=== PATIENT | male | born 1980 | race Caucasian/White ===

== ENCOUNTER 2020-08-23 11:36 | Emergency (ER) | payer BC, SELFPAY ==
--- OUTSIDE RECORDS SUMMARY | 2020-08-23 11:39 | XMS REPORT | Continuity of Care Document ---
:1980 Author Organization [facility] t Address [address] [place] [address] Care Team Providers Name Role Phone Pcp MD Primary Care Physician Unavailable [facility] Attending Clinician Unavailable [facility] Admitting Clinician Unavailable Problems Condition Condition Condition Status Onset Resolution Last Treating Co mments Source Name Details Category Date Date Treatment Clinician Date Pulmonary Pulmonary Disease Active [facility] 00 [place] Depression Depression Disease Active [facility] Allergies, Adverse Reactions, Alerts This patient has no known allergies or adverse reactions. Social History Social Habit Start Date Stop Date Quantity Comments Source Sex Assigned At [facility] Tobacco use and 2018-02-11 2018-02-11 Never used [facility] - exposure 00:00:00 00:00:00 [facility] Alcohol intake 2018-02-11 2018-02-[address] [facility] es - 00:00:00 00:00:00 non-drinker of [facility] nter alcohol (finding) Smoking Status Start Date Stop Date Source Never smoker [facility] Medications This patient has no known medications. Procedures This patient has no known procedures. Plan of Care Planned Activity Planned Date Details Comments Source Future Scheduled 2020-02-[address] [facility] - Test 00:00:00 (#1) [code = [facility] INFLUENZA VACCINE (#1)] Future Scheduled 2015 Lipid panel [facility] Test [facility]:00 (procedure) [code = [facility] [id number]] Results Test Description Test Time Test Comments Results Result Comments Source FACTOR 5 LEIDEN PCR (THROMBOTIC RISK) 2018-02-21 10:48:00 Test Item Value Reference Range Interpretation Comme nts FACTOR V LEIDEN (NEIDAAKER) (test code = Negative for the R506Q (Fa ctor V Leiden) 718) mutation [id number] (BEAKER) (test Pearl Newton MD (electro demetrius code = 2599) signature) This test is a genotyping assay which evaluates the DNA sequence corresponding to Codon 506 of the Factor V Gene. A region of the Factor V Gene is amplified by polymerase chain reaction followed by fluorescent monitoring of a specific pair of hybridized probes. Since genetic variation and other factors can affect the accuracy of direct mutation testing, these results should be interpreted in light ofclinical and familial data.This test was developed and its performance characteristics determined bythe [facility] Pathology Department, Section of Molecular Pathology. It has not been cleared or approved by the U.S. Food and Drug Administration (FDA), since FDA approval is not requ ired for clinical use of the test. Validation was done as required by the Clinical Laboratory Improvement Amendments of 1988.RAD, CHEST, 1 VIEW, NON DEPT 2018-02-13 10:22:00Reason for exam:->cough, sobShould this be performed at the bedside?->YesFINAL REPORT Portable chest. CLINICAL HISTORY: cough, sob. COMPARISON STUDY: None. FINDINGS: The cardiac silhouette is unremarkable. The pulmonary parenchyma demonstrates a 1.1 cm nodule in the right midlung field. Atelectatic changes are seen in the lung bases. No pleural effusi on is noted Degenerative changes are noted. IMPRESSION: 1.1 cm nodule in the right midlung. The patient recently had a CT scan at [facility]. Correlation with the study is recommended. Signed: Jt Hernandez MDReport Verified Date/Time: 02/13/2018 10:22:47 Reading Location: [facility] C013X [facility] Reading Room -[id number] 07:00:00 Test Item Value Reference Range Interpretation Comments D-DIMER QUANTITATIVE (NEIDAAKER) 0.36 MG/L FEU <0.50 (test code = 671) Intended Use: The D-Dimer Assay can be used to aid in the diagnosis of Deep Vein Thrombosis (DVT) and Pulmonary Embolism Disease (PED).In patients with low pre- test probability, various studies concerning STA Liatest D-dimer test have reported that with a cutoff value of 0.50 MG/L FEU, the Negative Predictive Value (NPV) regarding the exclusion of thrombosis is within 95-100% range. [id number] 06:59:00 Test Item Value Reference Range Interpretation Comments PROTIME (BEAKER) (test code = 13.1 seconds 11.7-14.7 759) INR (BEAKER) (test code = 370) 1.0 <=5.9 PARTIAL THROMBOPLASTIN TIME 87.9 seconds 22.5-36.0 H (BEAKER) (test code = 760) RECOMMENDED COUMADIN/WARFARIN INR THERAPY RANGESSTANDARD DOSE: 2.0 - 3.0 Includes: PROPHYLAXIS forvenous thrombosis, systemic embolization; TREATMENT for venous thrombosis and/or pulmonary embolus.HIGH RISK: Target INR is 2.5-3.5 for patients with mechanical heart valves.[id number] 06:59:00 Test Item Value Reference Range Interpretation Comments PARTIAL THROMBOPLASTIN TIME 87.9 seconds 22.5-36.0 H (BEAKER) (test code = 760) [id number] 06:58:00 Test Item Value Reference Range Interpretation Comments MAGNESIUM (BEAKER) 2.2 mg/dL 1.6-2.6 Specimen slightly (test code = 627) hemolyzed BASIC METABOLIC [id number] 06:58:00 Test Item Value Reference Range Interpretation Comments SODIUM (BEAKER) 138 meq/L 136-145 (test code = 381) POTASSIUM (BEAKER) 3.8 meq/L 3.5-5.1 Specimen slightly (test code = 379) hemolyzed CHLORIDE (BEAKER) 104 meq/L 98-107 (test code = 382) CO2 (BEAKER) (test 26 meq/L 22-29 code = 355) BLOOD UREA NITROGEN 16 mg/dL 7-21 (BEAKER) (test code = 354) CREATININE (BEAKER) 1.01 mg/dL 0.57-1.25 Specimen slightly (test code = 358) hemolyzed GLUCOSE RANDOM 88 mg/dL 70-105 (BEAKER) (test code = 652) CALCIUM (BEAKER) 9.4 mg/dL 8.4-10.2 (test code = 697) EGFR (BEAKER) (test 83 mL/min/1.73 ESTIMA ARNOL GFR IS code = 1092) sq m NOT ACCURATE CREATININE CLEARANCE IN PREDICTING GLOMERULAR FILTRATION RATE . ESTIMATED GFR I S NOT APPLICABLE FOR DIALYSIS PATIEN TS. [id number] 00:49:00 Test Item Value Reference Range Interpretation Comments PARTIAL THROMBOPLASTIN TIME 93.0 seconds 22.5-36.0 H (BEAKER) (test code = 760) [id number] 17:42:00 Test Item Value Reference Range Interpretation Comments PARTIAL THROMBOPLASTIN TIME 51.2 seconds 22.5-36.0 H (BEAKER) (test code = 760) OCCULT BLOOD, [id number] 17:41:00 Test Item Value Reference Range Interpretation Comments FECAL OCCULT BLOOD (BEAKER) (test Negative Negative code = 618) [id number] 10:24:00 Test Item Value Reference Range Interpretation Comments PARTIAL THROMBOPLASTIN TIME 54.7 seconds 22.5-36.0 H (BEAKER) (test code = 760) [id number] 07:58:00 Test Item Value Reference Range Interpretation Comments PROTIME (BEAKER) (test code = 14.5 seconds 11.7-14.7 759) INR (BEAKER) (test code = 370) 1.1 <=5.9 PARTIAL THROMBOPLASTIN TIME 121.8 seconds 22.5-36.0 H (BEAKER) (test code = 760) RECOMMENDED COUMADIN/WARFARIN INR THERAPY RANGESSTANDARD DOSE: 2.0 - 3.0 Includes: PROPHYLAXIS forvenous thrombosis, systemic embolization; TREATMENT for venous thrombosis and/or pulmonary embolus.HIGH RISK: Target INR is 2.5-3.5 for patients with mechanical heart valves.[id number] 07:48:00 Test Item Value Reference Range Interpretation Comments MAGNESIUM (BEAKER) (test code = 2.1 mg/dL 1.6-2.6 627) BASIC METABOLIC [id number] 07:48:00 Test Item Value Reference Range Interpretation Comments SODIUM (BEAKER) 142 meq/L 136-145 (test code = 381) POTASSIUM (BEAKER) 4.2 meq/L 3.5-5.1 (test code = 379) CHLORIDE (BEAKER) 107 meq/L 98-107 (test code = 382) CO2 (BEAKER) (test 27 meq/L 22-29 code = 355) BLOOD UREA NITROGEN 20 mg/dL 7-21 (BEAKER) (test code = 354) CREATININE (BEAKER) 1.08 mg/dL 0.57-1.25 (test code = 358) GLUCOSE RANDOM 90 mg/dL 70-105 (BEAKER) (test code = 652) CALCIUM (BEAKER) 9.5 mg/dL 8.4-10.2 (test code = 697) EGFR (BEAKER) (test 77 mL/min/1.73 ESTIMA ARNOL GFR IS code = 1092) sq m NOT ACCURATE CREATININE CLEARANCE IN PREDICTING GLOMERULAR FILTRATION RATE . ESTIMATED GFR I S NOT APPLICABLE FOR DIALYSIS PATIEN TS. CBC W/PLT COUNT & AUTO [id number] 07:35:00 Test Item Value Reference Range Interpretation Comments WHITE BLOOD CELL COUNT (BEAKER) 7.0 K/ L 3.5-10.5 (test code = 775) RED BLOOD CELL COUNT (BEAKER) 5.08 M/ L 4.63-6.08 (test code = 761) HEMOGLOBIN (BEAKER) (test code = 14.8 GM/DL 13.7-17.5 410) HEMATOCRIT (BEAKER) (test code = 44.8 % 40.1-51.0 411) MEAN CORPUSCULAR VOLUME (BEAKER) 88.2 fL 79.0-92.2 (test code = 753) MEAN CORPUSCULAR HEMOGLOBIN 29.1 pg 25.7-32.2 (BEAKER) (test code = 751) MEAN CORPUSCULAR HEMOGLOBIN CONC 33.0 GM/DL 32.3-36.5 (BEAKER) (test code = 752) RED CELL DISTRIBUTION WIDTH 12.1 % 11.6-14.4 (BEAKER) (test code = 412) PLATELET COUNT (BEAKER) (test 226 K/CU MM 150-450 code = 756) MEAN PLATELET VOLUME (BEAKER) 10.1 fL 9.4-12.4 (test code = 754) NUCLEATED RED BLOOD CELLS 0 /100 WBC 0-0 (BEAKER) (test code = 413) NEUTROPHILS RELATIVE PERCENT 44 % (BEAKER) (test code = 429) LYMPHOCYTES RELATIVE PERCENT 45 % (BEAKER) (test code = 430) MONOCYTES RELATIVE PERCENT 8 % (BEAKER) (test code = 431) EOSINOPHILS RELATIVE PERCENT 2 % (BEAKER) (test code = 432) BASOPHILS RELATIVE PERCENT 1 % (BEAKER) (test code = 437) NEUTROPHILS ABSOLUTE COUNT 3.05 K/ L 1.78-5.38 (BEAKER) (test code = 670) LYMPHOCYTES ABSOLUTE COUNT 3.11 K/ L 1.32-3.57 (BEAKER) (test code = 414) MONOCYTES ABSOLUTE COUNT (BEAKER) 0.58 K/ L 0.30-0.82 (test code = 415) EOSINOPHILS ABSOLUTE COUNT 0.14 K/ L 0.04-0.54 (BEAKER) (test code = 416) BASOPHILS ABSOLUTE COUNT (BEAKER) 0.04 K/ L 0.01-0.08 (test code = 417) IMMATURE GRANULOCYTES-RELATIVE 0 % 0-1 PERCENT (BEAKER) (test code = 2801) [id number] 19:33:00 Test Item Value Reference Range Interpretation Comments PARTIAL THROMBOPLASTIN TIME 41.6 seconds 22.5-36.0 H (BEAKER) (test code = 760) Prior to initiating heparinTROPONIN [id number] 19:14:00 Test Item Value Reference Range Interpretation Comments TROPONIN I (BEAKER) (test code = 397) < ng/mL 0.00-0.03 Troponin I (TnI) levels must be interpreted in the context of the presenting symptoms and the clinical findings. Elevated TnI levels indicate myocardial damage, but are not specific for ischemic heart disease. Elevated TnI levels are seen in patients with other cardiac conditions (including myocarditis and congestive heart failure), and slight TnI elevations occur in patients with other conditions, including sepsis, renal failure, acidosis, acute neurological disease, and persistent tachyarrhythmia.B-TYPE NATRIURETIC FACTOR (BNP) 2018-02-11 17:19:00 Test Item Value Reference Range Interpretation Comments B-TYPE NATRIURETIC PEPTIDE (BEAKER) 30 pg/mL 0-100 (test code = 700) TROPONIN [id number] 17:18:00 Test Item Value Reference Range Interpretation Comments TROPONIN I (BEAKER) (test code = 397) < ng/mL 0.00-0.03 Troponin I (TnI) levels must be interpreted in the context of the presenting symptoms and the clinical findings. Elevated TnI levels indicate myocardial damage, but are not specific for ischemic heart disease. Elevated TnI levels are seen in patients with other cardiac conditions (including myocarditis and congestive heart failure), and slight TnI elevations occur in patients with other conditions, including sepsis, renal failure, acidosis, acute neurological disease, and persistent tachyarrhythmia.
--- NOTE | 2020-08-23 13:26 | RAD REPORT ---
EXAM DESCRIPTION: Vivienne Single View08/23/2020 1:12 pm CLINICAL HISTORY: Chest pain COMPARISON: 2014 FINDINGS: Calcified granuloma right. The lungs appear clear of acute infiltrate. The heart is normal size IMPRESSION: No acute abnormalities displayed
[2020-08-23] MEDS ORDERED: NA CHLORIDE 0.9% 1,000 ML ONE (13:45)
[2020-08-23] MEDS ORDERED: KETOROLAC 30 MG/ML INJ ONE (13:45)
[2020-08-23 14:02] LABS: Absolute Lymphocytes (CBC) 1.4 K/uL (0.7-4.9); Basophils % 0.4 % (0-1.3); Hematocrit 45.9 % (39.6-49.0); Lymphocytes % 17.1 % (15.3-44.8); MPV 8.1 fL (7.6-11.3); RBC Red Blood Cell Count 5.36 M/uL (4.33-5.43)
[2020-08-23 14:07] LABS: Protime INR 1.03
[2020-08-23 14:31] LABS: BUN Blood Urea Nitrogen 15 mg/dL (7-18); Bicarbonate 26 mmol/L (21-32); Glucose Level 107 mg/dL (74-106); Potassium 3.6 mmol/L (3.5-5.1); Sodium Level 142 mmol/L (136-145)
[2020-08-23 14:32] LABS: ALT/SGPT 81 U/L (12-78); AST/SGOT 23 U/L (15-37); Albumin 3.8 g/dL (3.4-5.0); Alkaline Phosphatase 123 U/L (45-117); Bilirubin Direct 0.1 mg/dL (0-0.2); Bilirubin Total 0.4 mg/dL (0.2-1.0); Lipase 112 U/L (73-393); NT PRO-BNP 32 pg/mL (<125); Protein, Total 7.7 g/dL (6.4-8.2); Troponin (Emerg Dept Use Only) < 0.02 ng/mL (0.0-0.045)
--- NOTE | 2020-08-23 15:29 | RAD REPORT ---
EXAM DESCRIPTION: CT - Chest For Pe Angio - 08/23/2020 3:07 pm CLINICAL HISTORY: Chest pain COMPARISON: None. TECHNIQUE: Dynamically enhanced axial 3 mm thick images of the chest were obtained during administra tion of <100> mL Isovue 370 IV contrast. Coronal and oblique reconstruction images were generated and reviewed. Exam utilizes a protocol for optimal evaluation of pulmonary arterial tree. Maximum intensity projections 3D imaging was utilized All CT scans are performed using dose optimization technique as appropriate and may include automated exposure control or mA/KV adjustment according to patient size. FINDINGS: A pulmonary embolus is not seen. A thoracic aortic aneurysm is not noted. A pleural effusion is not seen. A pericardial effusion is not seen. A lung consolidation is not present. Fatty liver IMPRESSION: Negative for a pulmonary embolism.
[2020-08-23] MEDS ORDERED: MORPHINE 4 MG/ML SYR ONE (15:50)
--- NOTE | 2020-08-23 16:08 | RAD REPORT ---
EXAM DESCRIPTION: US - Abdomen Exam Limited - 08/23/2020 3:54 pm CLINICAL HISTORY: Abdominal pain. COMPARISON: 2014 FINDINGS: The gallbladder wall is not thickened. A gallstone is not seen. The biliary tree is normal caliber. IMPRESSION: Unremarkable gallbladder ultrasound.
--- NOTE | 2020-08-23 16:31 | EDPHYS ---
Physician Documentation [facility] Name: Alexander Mukherjee Age: 40 yrs Sex: Male : 1980 Arrival Date: 08/23/2020 Time: 11:37 Bed 13 Private MD: Issa Peters T ED Physician Julio C Garrison HPI: 08/23 13:00 This 40 yrs old Male presents to ER via Ambulatory with complaints of Flank cp Pain, lung pain with SOB, Shortness Of Breath. 13:00 The patient or guardian reports chest pain that is located primarily in the right side cp lower chest area. 13:00 Onset: 4 day(s) ago. The pain does not radiate. Duration: The patient or guardian cp reports a single episode, that is still ongoing, and worsening. Modifying factors: the symptoms are aggravated by cough, deep breath. Patient reports history of pulmonary embolism in 2018 due to unknown cause. Patient reports he took blood thinner for approximately 6 months and then stopped. Historical: - Allergies: 12:42 No Known Drug Allergies; tw2 - Home Meds: 12:42 ibuprofen 800 mg Oral tab 1 tab 3 times per day [Active]; tw2 - PMHx: 12:42 blood clot in lungs, 2018; tw2 - PSHx: 12:42 None; tw2 - Immunization history:: Adult Immunizations. - Social history:: Smoking status: Patient denies any tobacco usage or history of. ROS: 13:05 Cardiovascular: Positive for chest pain, of the right lower lateral chest, Negative for cp edema, palpitations. 13:05 Eyes: Negative for injury, pain, redness, and discharge. cp 13:05 Constitutional: Negative for body aches, chills, fever, poor PO intake. 13:05 Neck: Negative for pain with movement, pain at rest, stiffness. 13:05 Respiratory: Positive for cough, with no reported sputum, Negative for hemoptysis, wheezing. 13:05 Abdomen/GI: Negative for abdominal pain, nausea, vomiting, and diarrhea. 13:05 Back: Negative for pain at rest, pain with movement, radiated pain. 13:05 Neuro: Negative for altered mental status, headache, weakness. 13:05 All other systems are negative. Exam: 13:10 Constitutional: The patient appears in no acute distress, alert, awake, cp non-diaphoretic, non-toxic, well developed, well nourished, uncomfortable. 13:10 Head/Face: Normocephalic, atraumatic. cp 13:10 Eyes: Periorbital structures: appear normal, Conjunctiva: normal, no exudate, no injection, Sclera: no appreciated abnormality, Lids and lashes: appear normal, bilaterally. 13:10 ENT: External ear(s): are unremarkable, Nose: is normal, Posterior pharynx: Airway: no evidence of obstruction, patent. 13:10 Chest/axilla: Inspection: normal, Palpation: is normal, no crepitus, no tenderness. 13:10 Cardiovascular: Rate: normal, Rhythm: regular. 13:10 Respiratory: the patient does not display signs of respiratory distress, Respirations: normal, no use of accessory muscles, no retractions, labored breathing, is not present, Breath sounds: are clear throughout, no decreased breath sounds. 13:10 Abdomen/GI: Inspection: abdomen appears normal, Palpation: abdomen is soft and non-tender, in all quadrants. 13:10 Back: CVA tenderness, is absent, vertebral tenderness, is not appreciated. 13:10 Skin: no rash present. 13:17 ECG was reviewed by the Attending Physician. cp Vital Signs: 12:38 Weight 86.18 kg; Height 5 ft. 11 in. (180.34 cm) (R); Pain 7/10; tw2 13:00 BP 117 / 64; Pulse 77; Resp 18 S; Pulse Ox 100% on R/A; ca1 13:53 BP 111 / 59; Pulse 76; Resp 16 S; Pulse Ox 100% on R/A; ca1 14:58 BP 112 / 58; Pulse 73; Resp 16 S; Pulse Ox 100% on R/A; ca1 15:25 Temp 97(TE); ca1 15:55 BP 118 / 73; Pulse 99; Resp 14 S; Pulse Ox 100% on R/A; ca1 16:45 BP 137 / 84; Pulse 91; Resp 16 S; Pulse Ox 98% on R/A; ca1 17:30 BP 132 / 70; Pulse 93; Resp 18 S; Pulse Ox 100% on R/A; ca1 12:38 Body Mass Index 26.50 (86.18 kg, 180.34 cm) tw2 MDM: 12:47 Patient medically screened. cp 16:27 Data reviewed: vital signs, nurses notes, lab test result(s), EKG, radiologic studies, cp CT scan, ultrasound, I have discussed the patient's presentation/case with the attending Emergency Department Physician; and as a result, I will discharge patient. ED course: VSS. Pain improved with meds. Review of [place] prescription monitor website shows narcotic score 020, sedative score 010 and overdose risk score 110. Discussed results of labs, EKG and radiology studies negative for acute findings. Description of pain unlikely cardiac in nature. Will treat for musculoskeletal pain and discharge to home for continued monitoring. 08/23 12:55 Order name: Basic Metabolic Panel 08/23 12:55 Order name: CBC with Diff 08/23 12:55 Order name: LFT's 08/23 12:55 Order name: NT PRO-BNP 08/23 12:55 Order name: PT-INR 08/23 12:55 Order name: Troponin (emerg Dept Use Only) 08/23 12:55 Order name: Lipase; Complete Time: 14:35 08/23 12:55 Order name: D-Dimer; Complete Time: 14:35 08/23 12:55 Order name: Basic Metabolic Panel; Complete Time: 14:35 EDMS 08/23 14:35 Interpretation: Normal except: CL 110; GLUC 107; GFR 85. 08/23 12:55 Order name: CBC with Automated Diff; Complete Time: 14:11 EDMS 08/23 12:55 Order name: Liver (Hepatic) Function; Complete Time: 14:35 EDMS 08/23 14:36 Interpretation: Normal except: ALT 81; ALK 123; GLOB 3.9; A/G 1.0. 08/23 12:55 Order name: NT PRO-BNP; Complete Time: 14:35 EDMS 08/23 12:55 Order name: Protime (+INR); Complete Time: 14:35 EDMS 08/23 12:55 Order name: XRAY Chest (1 view); Complete Time: 13:39 08/23 12:55 Order name: EKG; Complete Time: 12:56 08/23 12:55 Order name: Cardiac monitoring; Complete Time: 13:24 08/23 12:55 Order name: EKG - Nurse/Tech; Complete Time: 13:25 08/23 12:55 Order name: IV Saline Lock; Complete Time: 13:25 cp 08/23 12:55 Order name: Labs collected and sent; Complete Time: 13:25 cp 08/23 12:55 Order name: O2 Per Protocol; Complete Time: 13:25 cp 08/23 12:55 Order name: O2 Sat Monitoring; Complete Time: 13:24 cp 08/23 12:56 Order name: Troponin (Emerg Dept Use Only); Complete Time: 14:35 EDMS 08/23 14:36 Interpretation: Within normal limits: TROPED < 0.02. cp 08/23 14:31 Order name: CT Chest For PE Angio; Complete Time: 16:14 cp 08/23 16:14 Interpretation: Report reviewed. cp 08/23 14:37 Order name: US Abdomen Limited cp 08/23 14:47 Order name: SARS-COV-2 RT PCR; Complete Time: 16:14 EDMS 08/23 16:08 Order name: US; Complete Time: 16:14 EDMS 08/23 16:15 Interpretation: Report reviewed. cp EC:17 Rate is 98 beats/min. Rhythm is regular. AK interval is normal. QRS interval is normal. cp QT interval is normal. T waves are Inverted in leads aVR, V3, V4. Interpreted by me. Reviewed by me. Administered Medications: 13:31 Drug: NS 0.9% 500 ml Route: IV; Rate: 125 ml/hr; Site: right antecubital; ca1 13:32 Drug: TORadol - Ketorolac 15 mg Route: IVP; Site: right antecubital; ca1 15:36 Drug: morphine 4 mg {Note: rass 0.} Route: IVP; Site: right antecubital; ca1 17:45 Follow up: Response: No adverse reaction aa5 Disposition: 18:06 Co-signature as Attending Physician, Julio C Garrison MD. rn Disposition: 08/23/20 16:31 Discharged to Home. Impression: Other chest pain - Right Lower Lateral. - Condition is Stable. - Discharge Instructions: Chest Wall Pain. - Prescriptions for Cyclobenzaprine 10 mg Oral Tablet - take 1 tablet by ORAL route every 8 hours As needed no driving while taking medication; 20 tablet. Diclofenac Sodium 75 mg Oral Tablet Sustained Release - take 1 tablet by ORAL route 2 times per day; 30 tablet. Tramadol 50 mg Oral Tablet - take 1 tablet by ORAL route every 8 hours as needed. No driving while taking medication; 12 tablet. - Medication Reconciliation Form, Thank You Letter, Antibiotic Education, Prescription Opioid Use form. - Follow up: Private Physician; When: 2 - 3 days; Reason: Recheck today's complaints. Signatures: Dispatcher [employer] EDVT Julio C Garrison MD MD rn Calderon, Audri RN RN aa5 Robert Keith PA PA cp Becky Roberts RN RN tw2 Samira Colby RN RN ca1 Corrections: (The following items were deleted from the chart) 13:57 12:56 CORONAVIRUS+MR.LAB.BRZ ordered. [facility] EDVT 17:47 16:31 08/23/2020 16:31 Discharged to Home. Impression: Other chest pain - Right Lower aa5 Lateral. Condition is Stable. Forms are Medication Reconciliation Form, Thank You Letter, Antibiotic Education, Prescription Opioid Use. Follow up: Private Physician; When: 2 - 3 days; Reason: Recheck today's complaints. cp
--- NOTE | 2020-08-23 16:31 | ER ---
Nurse's Notes [facility] Name: Alexander Mukherjee Age: 40 yrs Sex: Male : 1980 Arrival Date: 08/23/2020 Time: 11:37 Bed 13 Private MD: Issa Peters T Diagnosis: Other chest pain-Right Lower Lateral Presentation: 08/23 12:38 Chief complaint: Patient states: i started hurting this Friday evening, i took tw2 ibuprofen and it didn't clear up, i think i have a blood clot again in my lung, it hurts to cough or breath and it feels like is going to explode, i had a clot before in 2018, RIGHT lower rib area. Coronavirus screen: cough unrelated to allergies, shortness of breath, Client presents with at least one sign or symptom that may indicate coronavirus-19. Standard/surgical mask placed on the client. Provider contacted for isolation considerations. Ebola Screen: Patient denies travel to an Ebola-affected area in the 21 days before illness onset. Initial Sepsis Screen: Does the patient meet any 2 criteria? No. Patient's initial sepsis screen is negative. Does the patient have a suspected source of infection? No. Patient's initial sepsis screen is negative. Risk Assessment: Do you want to hurt yourself or someone else? Patient reports no desire to harm self or others. Onset of symptoms was August 23, 2020. 12:38 Method Of Arrival: Ambulatory tw2 12:38 Acuity: VIVIEN 2 tw2 Triage Assessment: 12:38 General: Appears uncomfortable, Behavior is calm, cooperative, appropriate for age. tw2 Pain: Complains of pain in back and chest. Historical: - Allergies: 12:42 No Known Drug Allergies; tw2 - Home Meds: 12:42 ibuprofen 800 mg Oral tab 1 tab 3 times per day [Active]; tw2 - PMHx: 12:42 blood clot in lungs, 2017; tw2 - PSHx: 12:42 None; tw2 - Immunization history:: Adult Immunizations. - Social history:: Smoking status: Patient denies any tobacco usage or history of. Screenin:50 Abuse screen: Denies threats or abuse. Denies injuries from another. Nutritional ca1 screening: No deficits noted. Tuberculosis screening: No symptoms or risk factors identified. Fall Risk IV access (20 points). Assessment: 12:50 General: Appears in no apparent distress. comfortable, Behavior is calm, cooperative, ca1 appropriate for age. Pain: Complains of pain in right lateral anterior chest and right lateral posterior chest Pain currently is 7 out of 10 on a pain scale. Pain began 5 days Is continuous. Neuro: Level of Consciousness is awake, alert, obeys commands, Oriented to person, place, time, situation. Cardiovascular: Heart tones S1 S2 present Capillary refill < 3 seconds Patient's skin is warm and dry. Rhythm is sinus rhythm. Respiratory: Reports shortness of breath with chest pain Airway is patent Respiratory effort is even, unlabored, Respiratory pattern is regular, symmetrical, Breath sounds are clear bilaterally. GI: Abdomen is flat, non-distended. : No signs and/or symptoms were reported regarding the genitourinary system. EENT: No signs and/or symptoms were reported regarding the EENT system. Derm: Skin is intact, is healthy with good turgor, Skin is pink, warm \T\ dry. Musculoskeletal: Circulation, motion, and sensation intact. Capillary refill < 3 seconds. 13:53 Reassessment: Patient appears in no apparent distress at this time. Patient and/or ca1 family updated on plan of care and expected duration. Pain level reassessed. Patient is alert, oriented x 3, equal unlabored respirations, skin warm/dry/pink. 14:58 Reassessment: Patient appears in no apparent distress at this time. Patient and/or ca1 family updated on plan of care and expected duration. Pain level reassessed. Patient is alert, oriented x 3, equal unlabored respirations, skin warm/dry/pink. 15:55 Reassessment: Patient appears in no apparent distress at this time. Patient and/or ca1 family updated on plan of care and expected duration. Pain level reassessed. Patient is alert, oriented x 3, equal unlabored respirations, skin warm/dry/pink. 16:55 Reassessment: Patient appears in no apparent distress at this time. Patient and/or ca1 family updated on plan of care and expected duration. Pain level reassessed. Patient is alert, oriented x 3, equal unlabored respirations, skin warm/dry/pink. 17:30 Reassessment: Patient appears in no apparent distress at this time. Patient is alert, ca1 oriented x 3, equal unlabored respirations, skin warm/dry/pink. 17:45 Reassessment: Patient is alert, oriented x 3, equal unlabored respirations, skin aa5 warm/dry/pink. Vital Signs: 12:38 Weight 86.18 kg; Height 5 ft. 11 in. (180.34 cm) (R); Pain 7/10; tw2 13:00 BP 117 / 64; Pulse 77; Resp 18 S; Pulse Ox 100% on R/A; ca1 13:53 BP 111 / 59; Pulse 76; Resp 16 S; Pulse Ox 100% on R/A; ca1 14:58 BP 112 / 58; Pulse 73; Resp 16 S; Pulse Ox 100% on R/A; ca1 15:25 Temp 97(TE); ca1 15:55 BP 118 / 73; Pulse 99; Resp 14 S; Pulse Ox 100% on R/A; ca1 16:45 BP 137 / 84; Pulse 91; Resp 16 S; Pulse Ox 98% on R/A; ca1 17:30 BP 132 / 70; Pulse 93; Resp 18 S; Pulse Ox 100% on R/A; ca1 12:38 Body Mass Index 26.50 (86.18 kg, 180.34 cm) tw2 ED Course: 11:37 Patient arrived in ED. am2 11:37 Issa Peters MD is Private Physician. am2 12:41 Triage completed. tw2 12:41 Arm band placed on. tw2 12:44 Samira Colby, JERSON is Primary Nurse. ca1 12:45 Robert Keith PA is PHCP. cp 12:45 Julio C Garrison MD is Attending Physician. cp 12:50 Patient has correct armband on for positive identification. Bed in low position. Call ca1 light in reach. Side rails up X2. property assessment monitor on. Pulse ox on. NIBP on. Warm blanket given. 13:12 XRAY Chest (1 view) In Process Unspecified. EDMS 13:24 Initial lab(s) drawn, by me, sent to lab. Inserted saline lock: 20 gauge in right ca1 antecubital area, using aseptic technique. Blood collected. 15:07 CT Chest For PE Angio In Process Unspecified. EDMS 17:45 No provider procedures requiring assistance completed. IV discontinued, intact, aa5 bleeding controlled, No redness/swelling at site. Pressure dressing applied. Administered Medications: 13:31 Drug: NS 0.9% 500 ml Route: IV; Rate: 125 ml/hr; Site: right antecubital; ca1 13:32 Drug: TORadol - Ketorolac 15 mg Route: IVP; Site: right antecubital; ca1 15:36 Drug: morphine 4 mg {Note: rass 0.} Route: IVP; Site: right antecubital; ca1 17:45 Follow up: Response: No adverse reaction aa5 Outcome: 16:31 Discharge ordered by . ashley 17:45 Discharged to home ambulatory. aa5 17:45 Condition: stable 17:45 Discharge instructions given to patient, Instructed on discharge instructions, follow up and referral plans. medication usage, Demonstrated understanding of instructions, follow-up care, medications, Prescriptions given X 3. 17:47 Patient left the ED. aa5 Signatures: Dispatcher [employer] EDMS Kanwal Chand, RN RN aa5 Robert Keith PA PA cp Wise, Tara, RN RN tw2 Fauzia Castano am2 Samira Colby RN RN ca1 Corrections: (The following items were deleted from the chart) 13:54 13:30 BP 117 / 64; Pulse 77bpm; Resp 18bpm; Spontaneous; Pulse Ox 100% RA; ca1 ca1 16:18 15:55 BP 112 / 58; Pulse 72bpm; Resp 14bpm; Spontaneous; Pulse Ox 100% RA; ca1 ca1
[2020-08-23 22:41] VITALS: O2SAT 100
[2020-08-23 22:44] VITALS: TEMP 97
[2020-08-23 22:46] VITALS: BP 118/73
--- NOTE | 2020-08-24 05:13 | EKG ---
Test Date: 2020-08-23 Test Time: 13:10:55 Top Polisher: KAY MEASUREMENT RESULTS: Intervals: Rate: 98 NH: 158 QRSD: 86 QT: 340 QTc: 434 [place]: P: 39 NH: 158 QRS: 74 T: 34 INTERPRETIVE STATEMENTS: Normal sinus rhythm Possible Left atrial enlargement Nonspecific ST and T wave abnormality Abnormal ECG Compared to ECG 09/29/2015 07:48:23 ST (T wave) deviation now present Early repolarization no longer present Electronically Signed On 08-24-20 05:11:19 [employer] by Demetrius Silveira
== END 2020-08-23 17:47 | disposition home or self-care (01) ==
LOC: ER 11:36
DX: R07.9 Chest pain, unspecified (principal); R10.9 Unspecified abdominal pain; R06.02 Shortness of breath; Z20.822 Contact with and (suspected) exposure to COVID-19; Z86.711 Personal history of pulmonary embolism
CPT/HCPCS: 36415; 71045; 71275; 76705; 80048; 80076; 83690; 83880; 84484; 85025; 85379; 85610; 93005; 96374; 96375; 99284; J7030; Q9967; U0003

== ENCOUNTER → 2023-09-08 | Emergency (ER) | payer BC, SELFPAY ==
[~2023-09-08] MED LIST: DIAZEPAM 5 MG TABLET ONE; HYDROCODONE/APAP 5/325 MG TAB ONE
--- NOTE | 2023-09-08 08:34 | RAD REPORT ---
EXAM DESCRIPTION: US - UPPER EXTREMITY VENOUS UNILATE - 09/08/2023 8:27 am CLINICAL HISTORY: PAIN Arm swelling and edema. COMPARISON: No comparisons FINDINGS: Right upper extremity venous system was interrogated with Doppler technique. Normal flow, compressibility and augmentation was noted. There is no DVT present. IMPRESSION: No evidence of right upper extremity deep venous thrombosis.
--- NOTE | 2023-09-08 08:43 | ER ---
Nurse's Notes [facility] Name: Alexander Mukherjee Age: 43 yrs Sex: Male : 1980 Arrival Date: 09/08/2023 Time: 07:07 Bed 6 Private MD: Diagnosis: Pain in right arm Presentation: 09/07 07:12 Chief complaint: Patient states: "my right arm is hurting and now my arm is tingling aa5 and going numb". Pt reports pain began Friday as cramping, denies known injury. 07:12 Onset of symptoms was August 2023. aa5 07:12 Acuity: VIVIEN 3 aa5 07:12 Method Of Arrival: Ambulatory aa5 07:12 Coronavirus screen: At this time, the client does not indicate any symptoms associated aa5 with coronavirus-19. Ebola Screen: Patient denies travel to an Ebola-affected area in the 21 days before illness onset. Initial Sepsis Screen: Does the patient meet any 2 criteria? No. Patient's initial sepsis screen is negative. Does the patient have a suspected source of infection? No. Patient's initial sepsis screen is negative. Risk Assessment: Do you want to hurt yourself or someone else? Patient reports no desire to harm self or others. 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 - Social history:: Smoking status: Patient denies any tobacco usage or history of. Screenin:34 [facility] ED Fall Risk Assessment (Adult) History of falling in the last 3 months, ko1 including since admission No falls in past 3 months (0 pts) Confusion or Disorientation No (0 pts) Intoxicated or Sedated No (0 pts) Impaired Gait No (0 pts) Mobility Assist Device Used No (0 pt) Altered Elimination No (0 pt) Score/Fall Risk Level 0 - 2 = Low Risk Oriented to surroundings, Maintained a safe environment, Educated pt \\T\\ family on fall prevention, incl call for assistance when getting out of bed, Assessed \\T\\ reinforced patient's understanding of fall precautions, Provided non-skid footwear, Hourly rounding (assess needs \\T\\ fall precautionary measures) done, Used ambulatory aids as needed (educated on \\T\\ assisted with), Used gait belt as appropriate. Abuse screen: Denies threats or abuse. Denies injuries from another. Nutritional screening: No deficits noted. Tuberculosis screening: No symptoms or risk factors identified. Assessment: 07:34 General: Appears distressed, uncomfortable, Behavior is cooperative, appropriate for ko1 age. Pain: Complains of pain in right arm. Neuro: Reports numbness in right hand. Cardiovascular: No deficits noted. Respiratory: No deficits noted. GI: No deficits noted. : No deficits noted. EENT: No deficits noted. Derm: No deficits noted. Musculoskeletal: No deficits noted. Vital Signs: 07:12 BP 129 / 58; Pulse 66; Resp 20 S; Temp 97.8(TE); Pulse Ox 100% on R/A; Weight 92.99 kg aa5 (R); Height 6 ft. 0 in. (R); 07:34 BP 122 / 80; Pulse 68; Resp 15; Temp 97; Pulse Ox 100% ; ko1 08:44 BP 112 / 81; Pulse 64; Resp 15; Pulse Ox 98% ; ko1 07:12 Body Mass Index 27.80 (92.99 kg, 182.88 cm) aa5 ED Course: 07:12 Patient arrived in ED. gm2 07:12 Arm band placed on. aa5 07:14 Car Bell, RN is Primary Nurse. bp 07:23 Be Kraft DO is Attending Physician. ms3 07:34 Patient has correct armband on for positive identification. Allergy band placed. Bed in ko1 low position. Call light in reach. Side rails up X 1. Client placed on continuous cardiac and pulse oximetry monitoring. NIBP monitoring applied. monitoring analyst on. Door closed. Noise minimized. Lights dimmed. Warm blanket given. 07:34 No provider procedures requiring assistance completed. ko1 07:35 Triage completed. aa5 08:29 UPPER EXTREMITY VENOUS UNILATE In Process Unspecified. EDMS 08:42 Vega Wagner DO is Referral Physician. ms3 08:44 Provided Education on: na. ko1 08:44 Patient did not have IV access during this emergency room visit. ko1 Administered Medications: 07:32 Drug: HYDROcodone-acetaminophen PO 5 mg-325 mg 1 tabs PO once Route: PO; ko1 07:52 Follow up: Response: No adverse reaction bp 07:33 Drug: Diazepam PO 5 mg PO once Route: PO; ko1 07:52 Follow up: Response: No adverse reaction bp Medication: 07:34 VIS not applicable for this client. ko1 Outcome: 08:42 Discharge ordered by . ms3 09:10 Discharged to home ambulatory, ko1 09:10 Condition: stable 09:10 Discharge instructions given to patient, Instructed on discharge instructions, follow up and referral plans. medication usage, Demonstrated understanding of instructions, follow-up care, medications, Prescriptions given X 2, 09:20 Patient left the ED. ko1 Signatures: Dispatcher [employer] EDMS Kanwal Chand RN RN aa5 Car Bell RN RN bp Be Kraft DO DO ms3 Damari Silveira, RN RN ko1 Grace Ruth gm2 Corrections: (The following items were deleted from the chart) 07:34 07:12 PMHx: blood clot in lungs; aa5 aa5
--- NOTE | 2023-09-08 08:43 | EDPHYS ---
Physician Documentation [facility] Name: Alexander Mukherjee Age: 43 yrs Sex: Male : 1980 Arrival Date: 09/08/2023 Time: 07:07 Bed 6 Private MD: ED Physician Be Kraft HPI: 09/07 07:47 This 43 yrs old Male presents to ER via Ambulatory with complaints of Shoulder Pain. 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 Patient rates pain 10/10. Patient states the pain began on Satur and became worse yesterday. Patient describes the pain as being a spasm/sharp. Patient denies any alleviating or inciting factors. Patient notes he does lift a 75 pound ladder daily and was moving items around his garage after a house remodel over the weekend.. 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 - Social history:: Smoking status: Patient denies any tobacco usage or history of. ROS: 07:47 Constitutional: Negative for fever, and chills. Neck: Negative for injury, pain, and ms3 swelling, Cardiovascular: Negative for chest pain, and palpitations. Respiratory: Negative for shortness of breath, cough, wheezing, and pleuritic chest pain, Abdomen/GI: Negative for abdominal pain, nausea, vomiting, diarrhea, and constipation, 07:47 MS/extremity: Positive for Right shoulder pain, Exam: 07:47 Constitutional: This is a well developed, well nourished patient who is awake, alert, ms3 and in no acute distress. Head/Face: Normocephalic, atraumatic. Neck: Trachea midline, no cervical lymphadenopathy. Supple, full range of motion without nuchal rigidity, or vertebral point tenderness. No Meningismus. Chest/axilla: Normal chest wall appearance and motion. Nontender with no deformity. Cardiovascular: Regular rate and rhythm with a normal S1 and S2. No gallops, murmurs, or rubs. Normal PMI, no JVD. No pulse deficits. Respiratory: Lungs have equal breath sounds bilaterally, clear to auscultation and percussion. No rales, rhonchi or wheezes noted. No increased work of breathing, no retractions or nasal flaring. Abdomen/GI: Soft, non-tender, with normal bowel sounds. No distension or tympany. No guarding or rebound. No evidence of tenderness throughout. Skin: Warm, dry with normal turgor. Normal color with no rashes, no lesions, and no evidence of cellulitis. 07:47 Musculoskeletal/extremity: Right upper extremity: Radial pulse 2+/4, motor intact, sensation intact. Vital Signs: 07:12 BP 129 / 58; Pulse 66; Resp 20 S; Temp 97.8(TE); Pulse Ox 100% on R/A; Weight 92.99 kg aa5 (R); Height 6 ft. 0 in. (R); 07:34 BP 122 / 80; Pulse 68; Resp 15; Temp 97; Pulse Ox 100% ; ko1 08:44 BP 112 / 81; Pulse 64; Resp 15; Pulse Ox 98% ; ko1 07:12 Body Mass Index 27.80 (92.99 kg, 182.88 cm) aa5 MDM: 07:30 Patient medically screened. ms3 07:47 Differential diagnosis: DVT versus degenerative disc disease versus versus muscle spasm ms3 versus musculoskeletal pain. 08:44 Data reviewed: vital signs, nurses notes, radiologic studies, ultrasound, and as a ms3 result, I will discharge patient. I considered the following discharge prescriptions or medication management in the emergency department Medications were administered in the Emergency Department. See MAR. Care significantly affected by the following chronic conditions: PE. Counseling: I had a detailed discussion with the patient and/or guardian regarding the historical points, exam findings, and any diagnostic results supporting the discharge/admit diagnosis, radiology results, the need for outpatient follow up, to return to the emergency department if symptoms worsen or persist or if there are any questions or concerns that arise at home. ED course: Discussed obtaining additional imaging with patient patient declines at this time. Patient to follow-up with Dr. Wagner in 2 to 3 days. Patient understands and agrees with plan. All questions were answered. Return precautions discussed include worsening symptoms, or any other concerns. On reevaluation patient's right arm remains neurovascularly intact, patient alert and orient x 4, no apparent distress, nontoxic-appearing. Patient given prescription for ibuprofen and Flexeril.. 09/07 07:47 Order name: UPPER EXTREMITY VENOUS UNILATE; Complete Time: 08:35 EDMS Administered Medications: 07:32 Drug: HYDROcodone-acetaminophen PO 5 mg-325 mg 1 tabs PO once Route: PO; ko1 07:52 Follow up: Response: No adverse reaction bp 07:33 Drug: Diazepam PO 5 mg PO once Route: PO; ko1 07:52 Follow up: Response: No adverse reaction bp Disposition Summary: 09/08/23 08:42 Discharge Ordered Notes: Location: Home ms3 Condition: Stable ms3 Diagnosis - Pain in right arm ms3 Followup: ms3 - With: Vega Wagner DO - When: 2 - 3 days - Reason: Recheck today's complaints Discharge Instructions: - Discharge Summary Sheet bp - Musculoskeletal Pain ms3 Forms: - Work release form bp - Medication Reconciliation Form ms3 - Thank You Letter ms3 - Antibiotic Education ms3 - Prescription Opioid Use ms3 - Patient Portal Instructions ms3 - Leadership Thank You Letter ms3 Prescriptions: - Ibuprofen 600 mg Oral Tablet - take 1 tablet ORAL route every 6 hours As needed take with food; 30 tablet; ms3 Refills: 0, Product Selection Permitted - Cyclobenzaprine 10 mg Oral Tablet - take 1 tablet ORAL route every 8 hours As needed; 30 tablet; Refills: 0, ms3 Product Selection Permitted Signatures: Dispatcher [employer] EDMS Kanwal Chand RN RN aa5 Be Kraft DO DO ms3 Damari Silveira RN RN ko1 Car Bell RN bp Corrections: (The following items were deleted from the chart) 07:34 07:12 PMHx: blood clot in lungs; aa5 aa5 07:47 07:30 Extremity Venous Uni [email or web address] ordered. EDMS EDMS
[2023-09-08 09:47] VITALS: BP 112/81; TEMP 97; O2SAT 98
== END ==
LOC: ER 07:07
DX: M79.601 Pain in right arm (principal); M25.511 Pain in right shoulder; Z88.8 Allergy status to other drugs, medicaments and biological substances
CPT/HCPCS: 93971; 99284

== ENCOUNTER 2024-04-18 16:49 | Emergency (ER) | payer BC ==
[2024-04-18] MEDS ORDERED: HYDROCODONE/CHLORPHEN 5 ML/OSYR ONE (17:14)
[2024-04-18] MEDS ORDERED: ONDANSETRON 4 MG (ODT) TAB ONE (17:14)
--- NOTE | 2024-04-18 17:42 | RAD REPORT ---
EXAMINATION: ONE VIEW CHEST XR CLINICAL INDICATION: Male, 43 years old.COUGH TECHNIQUE: 1 View, AP supine, X-ray of the chest was performed. [id number]. COMPARISON: 08/23/2020 FINDINGS: Lungs and pleura: Clear lungs. No effusion. Calcified right lung nodule. Heart and mediastinum: Normal heart size. Unremarkable mediastinal contours. Osseous structures: No acute abnormality. Tubes/lines: None Other: None. IMPRESSION: No acute intrathoracic abnormality.
[2024-04-18 18:07] LABS: SARS-CoV-2 Antigen CONTROL BLUE LINE VIS/BG OK; SARS-CoV-2 Antigen Rapid Res Negative (Negative)
--- NOTE | 2024-04-18 19:29 | ER ---
Nurse's Notes [facility] Name: Alexander Mukherjee Age: 43 yrs Sex: Male : 1980 Arrival Date: 04/18/2024 Time: 16:49 Bed 14 Private MD: Diagnosis: Cough;Nausea with vomiting, unspecified Presentation: 04/18 17:03 Chief complaint: Patient states: Cough, WU, N/V since 10 AM today. No known fever. ll1 Coronavirus screen: Client denies travel out of the [place] in the last 14 days. cough unrelated to allergies, difficulty breathing, headache, nausea, vomiting. Client presents with at least one sign or symptom that may indicate coronavirus-19. Standard/surgical mask placed on the client. Ebola Screen: Patient denies travel to an Ebola-affected area in the 21 days before illness onset. Initial Sepsis Screen: Does the patient meet any 2 criteria? No. Patient's initial sepsis screen is negative. Does the patient have a suspected source of infection? No. Patient's initial sepsis screen is negative. Risk Assessment: Do you want to hurt yourself or someone else? Patient reports no desire to harm self or others. Onset of symptoms was April 18, 2024. 17:03 Method Of Arrival: Ambulatory ll1 17:03 Acuity: VIVIEN 3 ll1 Triage Assessment: 17:00 General: Appears uncomfortable, Behavior is calm, cooperative, appropriate for age. ll1 Pain: Complains of pain in head. Neuro: Reports headache. Respiratory: Reports cough that is. GI: Reports nausea, vomiting. 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 - Infectious Disease History:: Denies. - Social history:: Smoking status: Patient denies any tobacco usage or history of. Screenin:07 [facility] ED Fall Risk Assessment (Adult) History of falling in the last 3 months, mb9 including since admission No falls in past 3 months (0 pts) Confusion or Disorientation No (0 pts) Intoxicated or Sedated No (0 pts) Impaired Gait No (0 pts) Mobility Assist Device Used No (0 pt) Altered Elimination No (0 pt) Score/Fall Risk Level 0 - 2 = Low Risk Oriented to surroundings, Maintained a safe environment, Educated pt \T\ family on fall prevention, incl call for assistance when getting out of bed. Abuse screen: Denies threats or abuse. Nutritional screening: No deficits noted. Tuberculosis screening: No symptoms or risk factors identified. Assessment: 17:24 General: Appears in no apparent distress. Behavior is calm, cooperative. Pain: mb9 Complains of pain in head Pain does not radiate. Quality of pain is described as throbbing. Neuro: Level of Consciousness is awake, alert, obeys commands, Oriented to person, place, time, situation, Appropriate for age. Cardiovascular: Patient's skin is warm and dry. Respiratory: Reports cough that is Airway is patent Respiratory effort is even, unlabored, Respiratory pattern is regular, symmetrical, Breath sounds are clear bilaterally. GI: Abdomen is flat, non-distended, Reports nausea. : No signs and/or symptoms were reported regarding the genitourinary system. EENT: No signs and/or symptoms were reported regarding the EENT system. Derm: Skin is pink, warm \T\ dry. Musculoskeletal: Range of motion: intact in all extremities. 18:34 Reassessment: Patient appears in no apparent distress at this time. Patient and/or mb9 family updated on plan of care and expected duration. Pain level reassessed. Patient is alert, oriented x 3, equal unlabored respirations, skin warm/dry/pink. Patient states feeling better. Patient states symptoms have improved. 19:06 General: Appears in no apparent distress. Behavior is calm, cooperative. Pain: Denies rg5 pain. Neuro: Level of Consciousness is awake, alert, obeys commands, Oriented to person, place, time. Respiratory: Respiratory effort is even, unlabored, Respiratory pattern is regular, symmetrical. GI: Abdomen is flat, non-distended. : No signs and/or symptoms were reported regarding the genitourinary system. Musculoskeletal: Circulation, motion, and sensation intact. Range of motion: limited in all extremities. Vital Signs: 17:03 BP 132 / 91; Pulse 77; Resp 17; Temp 98.4; Pulse Ox 99% on R/A; Weight 81.65 kg; Height ll1 6 ft. 0 in. ; 18:33 BP 126 / 86; Pulse 81; Resp 16; Pulse Ox 100% on R/A; mb9 19:06 BP 126 / 87; Pulse 80; Resp 17; Temp 98; Pulse Ox 99% on R/A; rg5 17:03 Body Mass Index 24.41 (81.65 kg, 182.88 cm) 1 ED Course: 16:52 Patient arrived in ED. im 16:55 Robert Keith PA is PHCP. cp 16:55 Nishi Wagner MD is Attending Physician. cp 16:57 Arm band placed on Patient placed in an exam room, on a stretcher. me1 17:00 Mandi Weinstein, JERSON is Primary Nurse. mb9 17:04 Triage completed. 1 17:07 Bed in low position. Call light in reach. Side rails up X 1. Provided Education on: mb9 press call light if needing anything. Client placed on continuous cardiac and pulse oximetry monitoring. NIBP monitoring applied. 17:24 Influenza Screen (a \T\ B) Sent. mb9 17:24 Strep Sent. mb9 17:24 SARS RAPID Sent. mb9 17:25 No provider procedures requiring assistance completed. mb9 17:36 XRAY Chest (1 view) In Process Unspecified. EDMS 19:03 Report given to JERSON Sue. mb9 19:48 Patient did not have IV access during this emergency room visit. rg5 Administered Medications: 17:24 Drug: Ondansetron PO 4 mg PO once Route: PO; mb9 18:38 Follow up: Response: No adverse reaction mb9 17:24 Drug: Tussionex Pennkinetic ER PO Suspension 5 ml PO once Route: PO; mb9 18:38 Follow up: Response: No adverse reaction mb9 Medication: 17:08 VIS not applicable for this client. mb9 Outcome: 19:28 Discharge ordered by . cp 19:49 Discharged to home ambulatory, rg5 19:49 Condition: stable 19:49 Discharge instructions given to patient, family, Instructed on discharge instructions, follow up and referral plans. Demonstrated understanding of instructions, follow-up care, medications, Prescriptions given X 2, 19:49 Patient left the ED. rg5 Signatures: Dispatcher [employer] EDAZ Robert Keith PA PA cp Lewis, Lynsay, RN RN 1 Mandi Weinstein RN RN mb9 Rossana Portillo Michelle, RN RN me1 Vikram Ashley, RN RN rg5 Corrections: (The following items were deleted from the chart) 16:57 16:57 PMHx: blood clot in lungs; me1 me1
--- NOTE | 2024-04-18 19:29 | EDPHYS ---
Physician Documentation [facility] Name: Alexander Mukherjee Age: 43 yrs Sex: Male : 1980 Arrival Date: 04/18/2024 Time: 16:49 Bed 14 Private MD: ED Physician Nishi Wagner HPI: 04/18 17:15 This 43 yrs old Male presents to ER via Ambulatory with complaints of Nausea/Vomiting, cp Cough, Headache. 17:15 The patient presents to the emergency department with nausea, that is moderate, cp vomiting, that is intermittent, described as bilious. Onset: The symptoms/episode began/occurred today. 17:15 Possible causes: unknown. Associated signs and symptoms: Pertinent positives: body cp aches, Pertinent negatives: constipation, diarrhea, fever. 17:15 Severity of symptoms: in the emergency department the symptoms are unchanged despite cp home interventions. 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 - Infectious Disease History:: Denies. - Social history:: Smoking status: Patient denies any tobacco usage or history of. ROS: 17:20 Constitutional: Positive for body aches, chills, Negative for fever, cp 17:20 Eyes: Negative for injury, pain, redness, and discharge, cp 17:20 Cardiovascular: Negative for chest pain, 17:20 Respiratory: Positive for cough, Negative for shortness of breath, wheezing, 17:20 Abdomen/GI: Positive for nausea and vomiting, Negative for diarrhea, constipation, 17:20 Back: Negative for pain at rest, pain with movement, 17:20 Neuro: Positive for headache, Negative for altered mental status, weakness, 17:20 All other systems are negative, Exam: 17:25 Constitutional: The patient appears in no acute distress, alert, awake, non-toxic, well cp developed, well nourished, uncomfortable, 17:25 Head/Face: Normocephalic, atraumatic. cp 17:25 Eyes: Periorbital structures: appear normal, Conjunctiva: normal, no exudate, no injection, Sclera: no appreciated abnormality, Lids and lashes: appear normal, bilaterally, 17:25 ENT: External ear(s): are unremarkable, Nose: is normal, Mouth: Lips: moist, Oral mucosa: moist, Posterior pharynx: Airway: no evidence of obstruction, patent, Tonsils: no enlargement, no exudate, erythema, that is mild, exudate, is not appreciated, 17:25 Neck: ROM/movement: is normal, is supple, without pain, no range of motions limitations, Lymph nodes: no appreciated lymphadenopathy, 17:25 Chest/axilla: Inspection: normal, 17:25 Cardiovascular: Rate: normal, Rhythm: regular, 17:25 Respiratory: the patient does not display signs of respiratory distress, Respirations: normal, no use of accessory muscles, no retractions, labored breathing, is not present, Breath sounds: decreased breath sounds, are not appreciated, stridor, is not appreciated, wheezing: is not appreciated, 17:25 Abdomen/GI: Inspection: abdomen appears normal, Palpation: soft, in all quadrants, mild abdominal tenderness, in the epigastric area, right upper quadrant and left upper quadrant, rebound tenderness, is not appreciated, involuntary guarding, is not appreciated, 17:25 Back: CVA tenderness, is absent, Vital Signs: 17:03 BP 132 / 91; Pulse 77; Resp 17; Temp 98.4; Pulse Ox 99% on R/A; Weight 81.65 kg; Height ll1 6 ft. 0 in. ; 18:33 BP 126 / 86; Pulse 81; Resp 16; Pulse Ox 100% on R/A; mb9 19:06 BP 126 / 87; Pulse 80; Resp 17; Temp 98; Pulse Ox 99% on R/A; rg5 17:03 Body Mass Index 24.41 (81.65 kg, 182.88 cm) ll1 MDM: 16:58 Medical Screening Exam initiated cp 19:27 Data reviewed: vital signs, nurses notes, lab test result(s), radiologic studies, plain cp films, and as a result, I will discharge patient. 19:27 Differential diagnosis: Nonspecific abd pain, gastritis, cholecystitis, pancreatitis, cp appendicitis, viral gastroenteritis, gastroenteritis. I considered the following discharge prescriptions or medication management in the emergency department Medications were administered in the Emergency Department. See MAR. Counseling: I had a detailed discussion with the patient and/or guardian regarding the historical points, exam findings, and any diagnostic results supporting the discharge/admit diagnosis, lab results, radiology results, to return to the emergency department if symptoms worsen or persist or if there are any questions or concerns that arise at home. Response to treatment: the patient's symptoms have markedly improved after treatment, VSS. Vomiting resolved, cough improved. Will discharge to home for continued monitoring. 04/18 17:11 Order name: SARS RAPID; Complete Time: 18:35 cp 04/18 18:35 Interpretation: Reviewed. cp 04/18 17:11 Order name: Strep; Complete Time: 19:26 cp 04/18 19:26 Interpretation: Reviewed. 04/18 17:11 Order name: Influenza Screen (a \T\ B); Complete Time: 18:35 cp 04/18 18:36 Interpretation: Reviewed. 04/18 19:11 Order name: Throat Culture EDMS 04/18 17:11 Order name: XRAY Chest (1 view); Complete Time: 18:35 cp 04/18 18:36 Interpretation: Report review. 04/18 18:05 Order name: PO challenge; Complete Time: 18:07 cp Administered Medications: 17:24 Drug: Ondansetron PO 4 mg PO once Route: PO; mb9 18:38 Follow up: Response: No adverse reaction mb9 17:24 Drug: Tussionex Pennkinetic ER PO Suspension 5 ml PO once Route: PO; mb9 18:38 Follow up: Response: No adverse reaction mb9 Disposition Summary: 04/18/24 19:28 Discharge Ordered Notes: Location: Home cp Problem: new cp Symptoms: have improved cp Condition: Stable cp Diagnosis - Cough cp - Nausea with vomiting, unspecified cp Followup: cp - With: Private Physician - When: 2 - 3 days - Reason: Worsening of condition Discharge Instructions: - Discharge Summary Sheet cp - Nausea and Vomiting, Adult cp - Cough, Adult cp - Form - Excuse from Work, School, or Physical Activity kmf - Form - Return To Work kmf Forms: - Medication Reconciliation Form cp - Antibiotic Education cp - Prescription Opioid Use cp - Patient Portal Instructions cp - Leadership Thank You Letter cp - Work release form kmf Prescriptions: - Bromfed DM 2-30-10 mg/5 mL Oral syrup - administer 10 milliliter ORAL route 3-4 times daily as needed for cold cp symptoms; 240 milliliter; Refills: 0, Product Selection Permitted - ondansetron 8 mg Oral Tablet,disintegrating - take 1 tablet ORAL route every 12 hours; 10 tablet; Refills: 0, Product cp Selection Permitted Signatures: Dispatcher [employer] EDMS Robert Keith PA PA cp Maria D Hampton, RN RN ll1 Js, Mandi Rivero, RN RN mb9 Casi Osborn RN RN me1 Corrections: (The following items were deleted from the chart) 16:57 16:57 PMHx: blood clot in lungs; me1 me1 17:12 17:12 SARS-COV-2 Antigen Rapid+I.LAB.BRZ ordered. EDMS EDMS 17:12 17:12 Group A Streptococcus Rapid Sc+BA.LAB.BRZ ordered. EDMS EDMS 17:12 17:12 Influenza Screen (A \T\ B)+BA.LAB.BRZ ordered. EDMS EDMS 17:12 17:12 Chest Single View+RAD.RAD.BRZ ordered. EDMS EDMS
[2024-04-18 19:56] VITALS: BP 126/87; TEMP 98; O2SAT 99
== END 2024-04-18 19:49 | disposition home or self-care (01) ==
LOC: ER 16:49
DX: R05.9 Cough, unspecified (principal); R11.2 Nausea with vomiting, unspecified; Z11.52 Encounter for screening for COVID-19
CPT/HCPCS: 87070; 36415; 87081; 87804 ×2; 71045; 99284; 87811; Q0162

== ENCOUNTER 2024-04-19 14:51 | Emergency (ER) | payer BC ==
[2024-04-19 15:34] LABS: Absolute Eosinophils 0.1 K/uL (0-0.5); Absolute Lymphocytes (CBC) 0.6 K/uL (0.7-4.9); Absolute Monocytes 0.3 K/uL (0.1-1.3); Absolute Neutrophil 7.6 K/uL (1.8-8.0); Basophils % 0.2 % (0-1.3); Eosinophils % 0.7 % (0-4.4); Hematocrit 44.6 % (39.6-49.0); Hemoglobin 14.8 g/dL (13.6-17.9); Lymphocytes % 7.4 % (15.3-44.8); MCH 29.6 pg (27.0-35.0); MCHC 33.2 g/dL (32.0-36.0); MCV 89.2 fL (80-100); MPV 8.1 fL (7.6-11.3); Monocytes % 3.7 % (3.3-12.3); Platelets 236 thou/uL (152-406); Red Cell Distribution Width 12.4 % (12.1-15.2)
[2024-04-19] MEDS ORDERED: ONDANSETRON 4 MG/2 ML VIAL ONE (15:36)
[2024-04-19] MEDS ORDERED: NA CHLORIDE 0.9% 1,000 ML ONE (15:36)
[2024-04-19] MEDS ORDERED: HYDROCODONE/CHLORPHEN 5 ML/OSYR ONE (15:36)
[2024-04-19 15:49] LABS: Anion Gap 9.6 mEq/L (5.0-15.0); BUN Blood Urea Nitrogen 19 mg/dL (7-18); Bicarbonate 24 mEq/L (21-32); Glomerular Filtration Rate 85 ml/min (=/>90); Glucose Level 101 mg/dL (74-106); NT PRO-BNP 46 pg/mL (<125); Potassium 3.6 mEq/L (3.5-5.1); Sodium Level 139 mEq/L (136-145)
[2024-04-19 16:05] LABS: Troponin High Sensitivity < 3.0 pg/mL (<58.9)
--- NOTE | 2024-04-19 16:46 | RAD REPORT ---
Procedure: Chest Single View HISTORY: Chest pain COMPARISON: April 18, 2024 FINDINGS: The lungs appear clear of acute infiltrate. Calcified granuloma right lung. No significant pleural effusion noted. The heart is normal size. IMPRESSION: No acute abnormality is displayed.
--- NOTE | 2024-04-19 16:46 | RAD REPORT ---
EXAMINATION: CTA CHEST PE CLINICAL INDICATION: Chest pain TECHNIQUE: 100 cc 370 Isovue administered intravenously. This examination was performed according to an angiographic protocol with 3D post-processing. This involves 3D reconstructions, MIPs, volume rendered images and/or shaded surface rendering. One or more of the following dose reduction techniqu es were used: Automated exposure control, adjustment of the mA and/or kV according to patient size, and/or iterative reconstruction. Unless otherwise specified, incidental findings do not require dedic ated imaging follow-up. [id number]. COMPARISON: 2020 FINDINGS: A pulmonary embolus is not seen. An aortic aneurysm not noted. No pleural effusion. No pericardial effusion. Right lung calcified granuloma. IMPRESSION: No evidence of a pulmonary embolism
--- NOTE | 2024-04-19 17:11 | ER ---
Nurse's Notes [facility] Name: Alexander Mukherjee Age: 43 yrs Sex: Male : 1980 Arrival Date: 04/19/2024 Time: 14:51 Bed 17 Private MD: Diagnosis: Cough Presentation: 04/19 15:11 Chief complaint: EMS states: Called to patient's PCP due to patient having an elevated cm10 heart rate at 109. Pt was seen here yesterday and was tested for flu and COVID and were negative. PT states that he just doesn't feel well. Coronavirus screen: Client denies travel out of the [place] in the last 14 days. Ebola Screen: Patient denies travel to an Ebola-affected area in the 21 days before illness onset. No symptoms or risks identified at this time. Initial Sepsis Screen: Does the patient meet any 2 criteria? No. Patient's initial sepsis screen is negative. Does the patient have a suspected source of infection? No. Patient's initial sepsis screen is negative. Risk Assessment: Do you want to hurt yourself or someone else? Patient reports no desire to harm self or others. Onset of symptoms was April 19, 2024. Care prior to arrival: IV initiated. 20 GA, in the right antecubital area. 15:11 Method Of Arrival: EMS: [facility] cm10 15:11 Acuity: VIVIEN 3 cm10 Triage Assessment: 15:13 General: Appears in no apparent distress. uncomfortable, Behavior is calm, cooperative. cm10 Pain: Denies pain. Neuro: No deficits noted. Level of Consciousness is awake, alert, obeys commands, Oriented to person, place, time, situation, Appropriate for age. Cardiovascular: No deficits noted. Patient's skin is warm and dry. Respiratory: No deficits noted. Airway is patent Respiratory effort is even, unlabored, Respiratory pattern is regular, symmetrical. 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 - Infectious Disease History:: Denies. - Social history:: Smoking status: Patient denies any tobacco usage or history of. - Family history:: not pertinent. - Hospitalizations: : No recent hospitalization is reported. Screenin:13 [facility] ED Fall Risk Assessment (Adult) History of falling in the last 3 months, cm10 including since admission No falls in past 3 months (0 pts) Confusion or Disorientation No (0 pts) Intoxicated or Sedated No (0 pts) Impaired Gait No (0 pts) Mobility Assist Device Used No (0 pt) Altered Elimination No (0 pt) Score/Fall Risk Level 0 - 2 = Low Risk Oriented to surroundings, Maintained a safe environment, Hourly rounding (assess needs \T\ fall precautionary measures) done. Abuse screen: Denies threats or abuse. Denies injuries from another. Nutritional screening: No deficits noted. Tuberculosis screening: No symptoms or risk factors identified. Assessment: 17:56 Reassessment: Patient appears in no apparent distress at this time. No changes from cm10 previously documented assessment. Patient and/or family updated on plan of care and expected duration. Pain level reassessed. Patient is alert, oriented x 3, equal unlabored respirations, skin warm/dry/pink. Patient states feeling better. Patient states symptoms have improved. Vital Signs: 15:11 BP 130 / 80; Pulse 88; Resp 14; Temp 98.7(O); Pulse Ox 100% on R/A; Weight 81.65 kg; cm10 Height 6 ft. 0 in. ; Pain 0/10; 15:45 BP 127 / 74; Pulse 79; Resp 18; Pulse Ox 96% on R/A; cm10 16:15 BP 130 / 72; Pulse 76; Resp 18; Pulse Ox 97% on R/A; cm10 17:48 BP 122 / 64; Pulse 81; Resp 14; Pulse Ox 98% on R/A; cm10 15:11 Body Mass Index 24.41 (81.65 kg, 182.88 cm) cm10 15:11 Pain Scale: Adult cm10 ED Course: 14:53 Patient arrived in ED. rn 14:53 Julio C Garrison MD is Attending Physician. rn 14:53 Denice Salinas, JERSON is Primary Nurse. cm10 15:13 Triage completed. cm10 15:14 Arm band placed on Patient placed in an exam room, on a stretcher. cm10 15:14 Patient has correct armband on for positive identification. Bed in low position. Call cm10 light in reach. Side rails up X2. Provided Education on: ER process and procedures.. Client placed on continuous cardiac and pulse oximetry monitoring. NIBP monitoring applied. ekg monitor tech on. 15:14 Maintain EMS IV. Dressing intact. Good blood return noted. Site clean \T\ dry. Gauge \T\ cm 10 site: 20g Right AC. Flushed with 10 mL NS. 15:15 Initial lab(s) drawn, by me, sent to lab. cm10 15:33 EKG done, by ED staff, reviewed by Julio C Garrison MD. cm10 16:[address] via stretcher. cm10 16:34 XRAY Chest (1 view) In Process Unspecified. EDMS 16:38 CT Chest For PE Angio In Process Unspecified. EDMS 16:40 Patient moved back from CT. cm10 17:57 No provider procedures requiring assistance completed. IV discontinued, intact, cm10 bleeding controlled, No redness/swelling at site. Pressure dressing applied. Administered Medications: 15:48 Drug: Ondansetron IVP 4 mg IVP once; over 2 minutes Route: IVP; Site: right antecubital;cm10 16:53 Follow up: Response: No adverse reaction cm10 15:48 Drug: NS 0.9% IV 1000 ml IV at 1000 ml once; to be given as a bolus over 60 minutes cm10 Route: IV; Rate: 1000 ml; Site: right antecubital; 16:54 Follow up: Response: No adverse reaction; IV Status: Completed infusion; IV Intake: cm10 1000ml 15:48 Drug: Tussionex Pennkinetic ER PO Suspension 5 ml PO once Route: PO; cm10 16:53 Follow up: Response: No adverse reaction cm10 17:48 Drug: AZITHromycin PO 500 mg PO once Route: PO; cm10 17:55 Follow up: Response: Medication administered at discharge. cm10 Medication: 17:58 VIS not applicable for this client. cm10 Intake: 16:54 IV: 1000ml; Total: 1000ml. cm10 Outcome: 17:11 Discharge ordered by . rn 17:58 Discharged to home ambulatory, with family, cm10 17:58 Condition: good 17:58 Discharge instructions given to patient, Instructed on discharge instructions, follow up and referral plans. medication usage, Demonstrated understanding of instructions, follow-up care, medications, Prescriptions given X 1, 17:58 Patient left the ED. cm10 Signatures: Dispatcher [employer] EDJulio C Hi MD MD rn Martinez, Clarissa, RN RN cm10 Corrections: (The following items were deleted from the chart) 17:56 17:56 Reassessment: Patient appears in no apparent distress at this time. No changes cm10 from previously documented assessment. Patient and/or family updated on plan of care and expected duration. Pain level reassessed. Patient is alert, oriented x 3, equal unlabored respirations, skin warm/dry/pink. cm10
--- NOTE | 2024-04-19 17:11 | EDPHYS ---
Physician Documentation [facility] Name: Alexander Mukherjee Age: 43 yrs Sex: Male : 1980 Arrival Date: 04/19/2024 Time: 14:51 Bed 17 Private MD: ED Physician Julio C Garrison HPI: 04/19 15:13 This 43 yrs old Male presents to ER via EMS with complaints of General Weakness, cough, rn chest pain. 15:13 The patient or guardian reports cough. Onset: The symptoms/episode began/occurred rn yesterday. Severity of symptoms: At their worst the symptoms were moderate, in the emergency department the symptoms are actually worse. Modifying factors: The symptoms are alleviated by nothing, the symptoms are aggravated by nothing. Associated signs and symptoms: Pertinent positives: chest pain, rhinorrhea, vomiting. The patient has experienced similar episodes in the past. Patient seen here last night, negative swabs and negative chest x-ray. Reports started feeling sick with productive cough, nasal congestion, nausea/vomiting yesterday. States did not improve after being discharged today so went to urgent care for further evaluation. Urgent care noted high heart rate so called 911 to bring him here for evaluation. Patient reports having cough, shortness of breath, nausea/vomiting/nasal congestion that is not getting better. Patient reports feels better than he did at urgent care.. 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 - Infectious Disease History:: Denies. - Social history:: Smoking status: Patient denies any tobacco usage or history of. - Family history:: not pertinent. - Hospitalizations: : No recent hospitalization is reported. ROS: 15:17 Constitutional: Positive for subjective fever Cardiovascular: Negative for chest pain, rn palpitations, and edema, Respiratory: Positive for cough Abdomen/GI: Positive for nausea and vomiting, negative for abdominal pain MS/Extremity: Negative for injury and deformity, Skin: Negative for injury, rash, and discoloration, Neuro: Positive for headache and generalized weakness Exam: 15:17 Constitutional: This is a well developed, well nourished patient who is awake, alert, rn hyperventilating, in position, will not open eyes for examination or during examination Head/Face: Normocephalic, atraumatic. ENT: Dry mucous membranes, no stridor Neck: No meningismus Cardiovascular: Regular rate and rhythm. No pulse deficits. Respiratory: Mild tachypnea, able to slow his breathing with coaching Abdomen/GI: Soft, nontender MS/ Extremity: Pulses equal, no cyanosis. Neurovascular intact. Full, normal range of motion. Equal circumference. Neuro: Awake and alert, GCS 15 15:32 ECG was reviewed by the Attending Physician. rn Vital Signs: 15:11 BP 130 / 80; Pulse 88; Resp 14; Temp 98.7(O); Pulse Ox 100% on R/A; Weight 81.65 kg; cm10 Height 6 ft. 0 in. ; Pain 0/10; 15:45 BP 127 / 74; Pulse 79; Resp 18; Pulse Ox 96% on R/A; cm10 16:15 BP 130 / 72; Pulse 76; Resp 18; Pulse Ox 97% on R/A; cm10 17:48 BP 122 / 64; Pulse 81; Resp 14; Pulse Ox 98% on R/A; cm10 15:11 Body Mass Index 24.41 (81.65 kg, 182.88 cm) cm10 15:11 Pain Scale: Adult cm10 MDM: 14:53 Medical Screening Exam initiated rn 17:07 Differential Diagnosis: Bronchitis Influenza Upper Respiratory Infection Viral Syndrome rn Pneumonia. Data reviewed: vital signs, nurses notes, lab test result(s), radiologic studies, CT scan, plain films, and as a result, I will discharge patient. 17:09 Counseling: I had a detailed discussion with the patient and/or guardian regarding the rn historical points, exam findings, and any diagnostic results supporting the discharge/admit diagnosis, lab results, radiology results, the need for outpatient follow up, to return to the emergency department if symptoms worsen or persist or if there are any questions or concerns that arise at home. Response to treatment: the patient's symptoms have markedly improved after treatment, and as a result, I will discharge patient. Special discussion: I discussed with the patient/guardian in detail that at this point there is no indication for admission to the hospital. It is understood, however, that if the symptoms persist or worsen the patient needs to return immediately for re-evaluation. ED course: Patient markedly improved after Tussionex. Chest x-ray and CT PE protocol negative. No oxygen requirement. Afebrile. Troponin and BNP negative. Will discharge home with antibiotics and given return precautions. Last night was already prescribed cough medication and Zofran, just filled it prior to arrival.. 04/19 15:06 Order name: Basic Metabolic Panel; Complete Time: 16:10 rn 04/19 15:06 Order name: CBC with Diff; Complete Time: 16:10 rn 04/19 15:06 Order name: NT PRO-BNP; Complete Time: 16:10 rn 04/19 15:06 Order name: Troponin HS; Complete Time: 16:10 rn 04/19 15:06 Order name: XRAY Chest (1 view); Complete Time: 16:50 rn 04/19 15:10 Order name: CT Chest For PE Angio; Complete Time: 16:50 rn 04/19 15:06 Order name: Cardiac monitoring; Complete Time: 15:14 rn 04/19 15:06 Order name: EKG - Nurse/Tech; Complete Time: 15:32 rn 04/19 15:06 Order name: IV Saline Lock; Complete Time: 15:14 rn 04/19 15:06 Order name: Labs collected and sent; Complete Time: 15:32 rn 04/19 15:06 Order name: O2 Per Protocol; Complete Time: 15:14 rn 04/19 15:06 Order name: O2 Sat Monitoring; Complete Time: 15:14 rn EC:32 Rate is 75 beats/min. Rhythm is regular. QRS [place] is Normal. MS interval is normal. QRS rn interval is normal. QT interval is normal. No Q waves. T waves are Normal. No ST changes noted. Clinical impression: Normal ECG. Interpreted by me. Reviewed by me. Administered Medications: 15:48 Drug: Ondansetron IVP 4 mg IVP once; over 2 minutes Route: IVP; Site: right antecubital;cm10 16:53 Follow up: Response: No adverse reaction cm10 15:48 Drug: NS 0.9% IV 1000 ml IV at 1000 ml once; to be given as a bolus over 60 minutes cm10 Route: IV; Rate: 1000 ml; Site: right antecubital; 16:54 Follow up: Response: No adverse reaction; IV Status: Completed infusion; IV Intake: cm10 1000ml 15:48 Drug: Tussionex Penn[place] ER PO Suspension 5 ml PO once Route: PO; cm10 16:53 Follow up: Response: No adverse reaction cm10 17:48 Drug: AZITHromycin PO 500 mg PO once Route: PO; cm10 17:55 Follow up: Response: Medication administered at discharge. 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 Day 2, 3, 4 , 5 take one (1) tablet once daily.; 6 tablet; Refills: 0, Product Selection Permitted Signatures: Dispatcher [employer] Julio C Rascon MD MD rn Denice Salinas RN RN 10
[2024-04-19] MEDS ORDERED: AZITHROMYCIN 250 MG TAB ONE (17:41)
[2024-04-19 21:45] VITALS: TEMP 98.7
[2024-04-19 21:49] VITALS: BP 122/64; O2SAT 98
--- NOTE | 2024-04-20 12:19 | EKG ---
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
== END 2024-04-19 17:58 | disposition home or self-care (01) ==
LOC: ER 14:51
DX: R05.9 Cough, unspecified (principal); R07.9 Chest pain, unspecified; Z11.52 Encounter for screening for COVID-19
CPT/HCPCS: 93005; 85025; 80048; 36415; 84484; 83880; 71275; 71045; Q9967; J2405; J7030; 96361; 96374; 99285